=== PATIENT | female | born 1965 | race Hispanic/Latino ===

== ENCOUNTER 2016-11-16 06:55 | Emergency (ER) | payer OTHER ==
[~2016-11-16] VITALS: Ht 162.6 cm; Wt 89.8 kg
[~2016-11-16 06:55] MED LIST: IBUPROFEN800 M1 PO; PERCOCET 5-3251 EACH PO; ZOFRAN ODT4 M1 SL
[2016-11-16 07:03] VITALS: BP 113/75
--- NOTE | 2016-11-16 08:44 | ED GI/GU/ABDOMINAL COMPLAINT ---
History of Present Illness General Chief Complaint: General Adult Stated Complaint: "SICK X3DAYS, ? DIVERCITILITIS" Source: patient, family Exam Limitations: no limitations Vital Signs & Intake/Output Vital Signs & Intake/Output Vital Signs Date Time Temp Pulse Resp B/P B/P Pulse O2 O2 Flow FiO2 Mean Ox Delivery Rate 11/16 0703 96.2 96 16 113/75 Allergies Coded Allergies: NO KNOWN ALLERGIES (07/14/12) Reconcile Medications Hyoscyamine (Levsin) 0.125 MG TABLET 1 TAB PO Q4 PRN ABDOMINAL PAIN Ondansetron (Zofran Odt) 4 MG TAB.RAPDIS 1 TAB SL TID PRN NAUSEA Triage Note: PT STATES SHE HAS BEEN SICK FOR THREE DAYS WITH DIZZINESS, CHILLS AND DIARRHEA WITH A AFEVER. PT STATES SHE HAS BEEN UP ALL NIGHT WITH A FEVER. PT STATES SHE HAS DIVERTICULITIS BECAUSE SHE HAD A LOT OF SUNFLOWER SEEDS LAST WEEK. Triage Nurses Notes Reviewed? yes ? N Is pt currently ? No HPI: Patient presents to the emergency room with abdominal pain, diarrhea, fever chills, anorexia. The symptoms started 3 days ago. The abdominal pain is crampy in nature and is in both the right and left lower quadrant. The pain is constant. There are no aggravating or mitigating factors. There is no change after a bowel movement. Slight nausea but no vomiting. Positive anorexia. She rates the cramps at 4 out of 10. She has not noticed any blood in her stool. She states that she's been having subjective fevers and chills. Patient denies any coughing. There is no headache. Patient is concerned that she might have diverticulitis and she ate a lot of sunflower seeds earlier last week. Past History Travel History Traveled to [place] past 21 day No Medical History Any Pertinent Medical History? none Neurological: NONE EENT: NONE Cardiovascular: NONE Respiratory: NONE Gastrointestinal: NONE Hepatic: NONE Renal: NONE Musculoskeletal: NONE Psychiatric: NONE Endocrine: NONE Blood Disorders: NONE Cancer(s): NONE Surgical History Surgical History: none Psychosocial History What is your primary language Romanian Tobacco Use: Never used ETOH Use: occasional use Illicit Drug Use: denies illicit drug use Family History Hx Contributory? No Review of Systems Review of Systems Constitutional: Reports: see HPI, chills, fever. EENTM: Reports: no symptoms. Respiratory: Reports: no symptoms. Cardiovascular: Reports: no symptoms. GI: Reports: see HPI, abdominal pain, diarrhea, nausea. Genitourinary: Reports: no symptoms. Musculoskeletal: Reports: no symptoms. Skin: Reports: no symptoms. Neurological/Psychological: Reports: no symptoms. Hematologic/Endocrine: Reports: no symptoms. Immunologic/Allergic: Reports: no symptoms. All Other Systems: Reviewed and Negative Physical Exam Physical Exam General Appearance: well developed/nourished, alert, awake Head: atraumatic, normal appearance Eyes: Bilateral: PERRL, EOMI. Ears, Nose, Throat, Mouth: hearing grossly normal, DRY MUCOSA Neck: normal inspection, supple, full range of motion Respiratory: normal breath sounds, chest non-tender, no respiratory distress, lungs clear Cardiovascular: regular rate/rhythm, normal peripheral pulses Gastrointestinal: normal bowel sounds, soft, non-tender, no organomegaly, NO REBOUND OR GUARDING Back: normal inspection, normal range of motion Extremities: normal range of motion Neurologic/Psych: no motor/sensory deficits, awake, alert, oriented x 3, normal gait, normal mood/affect Skin: intact, normal color, warm/dry Core Measures ACS in differential dx? No Severe Sepsis Present: No Septic Shock Present: No Progress Differential Diagnosis: appendicitis, bowel obstruction, diverticulitis, gastritis, hepatitis, ischemic bowel, inflamm bowel dis, SBO Plan of Care: Orders Procedure Date/time Status LACTIC ACID 11/17 827 Complete URINE 11/17 819 Complete URINALYSIS 11/17 819 Complete COMPREHENSIVE METABOLIC PANEL 11/17 819 Complete CBC WITHOUT DIFFERENTIAL 11/17 819 Complete Laboratory Tests 11/16/16 1127: Lactic Acid Cancelled 11/16/16 0830: Urine Color YEL, Urine Clarity CLDY H, Urine pH 6.0, Ur Specific [place] >= 1.030, Urine Protein 30 H, Urine Ketones NEG, Urine Nitrite NEG, Urine Bilirubin NEG@ICTO, Urine Urobilinogen 0.2, Ur Leukocyte Esterase NEG, Ur Microscopic SEDIMENT EXAMINED, Urine RBC 3-5, Urine WBC RARE, Ur Epithelial Cells MANY H, Urine Bacteria MOD H, Urine Mucus MOD H, Urine Hemoglobin SMALL H, Urine Glucose NEG, Urine Test NEGATIVE 11/16/16 0828: Anion Gap 11, Estimated GFR > 60, BUN/Creatinine Ratio 17.1, Glucose 89, Lactic Acid 0.9, Calcium 9.0, Total Bilirubin 0.7, AST 21, ALT 34, Alkaline Phosphatase 68, Total Protein 7.3, Albumin 4.1, Globulin 3.2, Albumin/Globulin Ratio 1.3, CBC w Diff MAN DIFF ORDERED, RBC 5.11, MCV 82.5, MCH 27.0, RDW 13.7, MPV 8.5, Gran % 88.2 H, Lymphocytes % 6.6 L, Monocytes % 5.0, Eosinophils % 0, Basophils % 0.2, Absolute Granulocytes 7.5 H, Absolute Lymphocytes 0.6 L, Absolute Monocytes 0.4, Absolute Eosinophils 0, Absolute Basophils 0, Platelet Estimate VERIFIED BY SMEAR, Normocytic RBCs VERIFIED, Normochromic RBCs VERIFIED , PUBS MCHC 32.8 L 11/16/16 08: Lactic Acid Cancelled Diagnostic Imaging: Viewed by Me: CT Scan. Discussed w/RAD: CT Scan. Radiology Impression: PATIENT: CHITRA BLEDSOE PRESENT AGE: 51 PATIENT ACCOUNT NO: [id number] : 65 LOCATION: [facility] ORDERING PHYSICIAN: PATRICIA BRUNO MD SERVICE DATE: 11/16/16 EXAM TYPE: CAT - CT ABD & PELVIS W IV CONTRAST EXAMINATION: CT ABDOMEN AND PELVIS WITH CONTRAST CLINICAL INFORMATION: Lower abdominal pain, diarrhea and fevers. COMPARISON: CT images of abdomen pelvis, 03/08/2016. Renal ultrasound, 05/16/2016. TECHNIQUE: Multidetector volumetric imaging was performed of the abdomen and pelvis before and after the IV administration of 95 mL of Optiray 320 intravenous contrast. Sagittal and coronal reformatted images were obtained on the technologist's workstation. DLP: 1006 mGy-cm FINDINGS: LUNG BASES: Unremarkable. LIVER, GALLBLADDER, AND BILIARY TREE: Liver has normal size and contour. No focal hepatic lesion or intrahepatic bile duct dilatation. Gallbladder is surgically absent. PANCREAS: Unremarkable. SPLEEN: Spleen measures 14.9 cm maximum dimension, unchanged compared to 03/09/2016. No focal splenic lesion. ADRENAL GLANDS: Unremarkable. KIDNEYS AND URETERS: 0.4 cm calculus with attenuation of approximately 444 Hounsfield units within the right upper pole. 0.7 cm cortical cyst within the interpolar region of the right kidney. Otherwise, right kidney is unremarkable. Left kidney has two small hypodense subcentimeter sized foci that are likely cysts but are too small for characterization. No left-sided hydroureteronephrosis or nephrolithiasis. BLADDER: Unremarkable. 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 Loops of bowel are normal in caliber. The terminal ileum and appendix are normal. No evidence of bowel wall edema, mesenteric stranding, ascites or pneumoperitoneum. ABDOMINAL WALL: Unremarkable. LYMPH NODES: No pathologic sized lymph nodes within the abdomen or pelvis. VASCULAR: Abdominal aorta is normal in caliber. No retroperitoneal mass or hemorrhage. PELVIC VISCERA: The uterus is retroflexed. 1.8 cm corpus luteum cyst of the right ovary. A trace/physiologic amount of free fluid is seen in the pelvic cul-de-sac. OSSEOUS STRUCTURES: Chronic L4-L5 degenerative disc disease. No aggressive osseous lesions. IMPRESSION: 1. No acute findings along the gastrointestinal tract. 2. Small, 0.4 cm nonobstructing calculus at the upper pole of the right kidney. 3. Chronic splenomegaly. 4. Corpus luteum cyst of right ovary and trace, physiologic amount of free fluid in the pelvic cul-de-sac (possibly due to recent ovarian cyst rupture). DICTATED BY : JOHANNA ZUNIGA MD DATE/TIME DICTATED:11/16/161029 DISK RECORDIST: LESLIE DATE/TIME TRANSCRIBED:11/16/161029 CONFIDENTIAL, DO NOT COPY WITHOUT APPROPRIATE AUTHORIZATION. <Electronically signed in Other Vendor System> SIGNED BY: JOHANNA ZUNIGA MD 11/16/16 1043 Initial ED EKG: none Departure Departure Disposition: HOME OR SELF CARE Condition: Stable Clinical Impression Primary Impression: Dehydration Secondary Impressions: Lower abdominal pain, unspecified Referrals: VIRGINIA PINZON,THEODORE Newsome (PCP/Family) Additional Instructions: drink plenty of fluids return for any concerns Departure Forms: Customer Survey General Discharge Information Prescriptions: Current Visit Scripts Hyoscyamine (Levsin) 1 TAB PO Q4 PRN ABDOMINAL PAIN #20 TAB Ondansetron (Zofran Odt) 1 TAB SL TID PRN NAUSEA #10 TAB
[2016-11-16 09:03] LABS: ABSOLUTE BASOPHIL COUNT 0 /CUMM (0.0-0.2); ABSOLUTE EOSINOPHIL COUNT 0 /CUMM (0.0-0.7); ABSOLUTE GRANULOCYTE CT 7.5 /CUMM (1.4-6.5); ABSOLUTE LYMPH COUNT 0.6 /CUMM (1.2-3.4); ABSOLUTE MONOCYTE COUNT 0.4 /CUMM (0.10-0.60); BASOPHIL % 0.2 % (0.0-2.0); EOSINOPHIL % 0 % (0-5); GRANULOCYTE % 88.2 % (42.2-75.2); HEMATOCRIT 42.2 % (37-47); MEAN CORPUSCULAR HGB CONC 32.8 G/DL (33.0-37.0); MEAN CORPUSCULAR VOLUME 82.5 FL (81.0-99.0); MEAN PLATELET VOLUME 8.5 FL (7.4-10.4); PLATELET COUNT 236 /CUMM (130-400); RBC DISTRIBUTION WIDTH 13.7 % (11.5-14.5); RED BLOOD CELL CT 5.11 /CUMM (4.20-5.40); WHITE BLOOD CELL COUNT 8.5 /CUMM (4.8-10.8)
--- NOTE | 2016-11-16 10:43 | CT SCAN REPORT ---
EXAMINATION: CT ABDOMEN AND PELVIS WITH CONTRAST CLINICAL INFORMATION: Lower abdominal pain, diarrhea and fevers. COMPARISON: CT images of abdomen pelvis, 03/08/2016. Renal ultrasound, 05/16/2016. TECHNIQUE: Multidetector volumetric imaging was performed of the abdomen and pelvis before and after the IV administration of 95 mL of Optiray 320 intravenous contrast. Sagittal and coronal reformatted images were obtained on the technologist's workstation. DLP: 1006 mGy-cm FINDINGS: LUNG BASES: Unremarkable. LIVER, GALLBLADDER, AND BILIARY TREE: Liver has normal size and contour. No focal hepatic lesion or intrahepatic bile duct dilatation. Gallbladder is surgically absent. PANCREAS: Unremarkable. SPLEEN: Spleen measures 14.9 cm maximum dimension, unchanged compared to 03/09/2016. No focal splenic lesion. ADRENAL GLANDS: Unremarkable. KIDNEYS AND URETERS: 0.4 cm calculus with attenuation of approximately 444 Hounsfield units within the right upper pole. 0.7 cm cortical cyst within the interpolar region of the right kidney. Otherwise, right kidney is unremarkable. Left kidney has two small hypodense subcentimeter sized foci that are likely cysts but are too small for characterization. No left-sided hydroureteronephrosis or nephrolithiasis. BLADDER: Unremarkable. 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 Loops of bowel are normal in caliber. The terminal ileum and appendix are normal. No evidence of bowel wall edema, mesenteric stranding, ascites or pneumoperitoneum. ABDOMINAL WALL: Unremarkable. LYMPH NODES: No pathologic sized lymph nodes within the abdomen or pelvis. VASCULAR: Abdominal aorta is normal in caliber. No retroperitoneal mass or hemorrhage. PELVIC VISCERA: The uterus is retroflexed. 1.8 cm corpus luteum cyst of the right ovary. A trace/physiologic amount of free fluid is seen in the pelvic cul-de-sac. OSSEOUS STRUCTURES: Chronic L4-L5 degenerative disc disease. No aggressive osseous lesions. IMPRESSION: 1. No acute findings along the gastrointestinal tract. 2. Small, 0.4 cm nonobstructing calculus at the upper pole of the right kidney. 3. Chronic splenomegaly. 4. Corpus luteum cyst of right ovary and trace, physiologic amount of free fluid in the pelvic cul-de-sac (possibly due to recent ovarian cyst rupture).
[2016-11-16] MEDS ORDERED: ZOFRAN ODT4 M1 SL (10:51)
[2016-11-16] MEDS ORDERED: LEVSIN0.125 M1 PO (10:51)
== END 2016-11-16 11:23 ==
LOC: ERH 06:55
PROVIDERS: Emergency Medicine
DX: E86.0 Dehydration (principal); R10.30 Lower abdominal pain, unspecified; R50.9 Fever, unspecified
CPT/HCPCS: 74177; 81001; 81025; 96361; 96374; J2405